=== PATIENT | female | born 1965 | race Caucasian/White ===

== ENCOUNTER 2019-04-04 01:30 | Emergency (ER) | payer OTHER ==
[~2019-04-04] VITALS: Ht 160 cm; Wt 122.0 kg
[2019-04-04 01:35] VITALS: Ht 160 cm; Wt 122.0 kg
[2019-04-04 03:28] VITALS: BP 135/60
== END 2019-04-04 03:28 | disposition home or self-care (01) ==
LOC: ED 01:30
DX: S93.602A Unspecified sprain of left foot, initial encounter (principal); Z90.49 Acquired absence of other specified parts of digestive tract; X50.1XXA Overexertion from prolonged static or awkward postures, initial encounter; Y93.01 Activity, walking, marching and hiking; Y92.89 Other specified places as the place of occurrence of the external cause; Y99.8 Other external cause status
CPT/HCPCS: J1885